=== PATIENT | male | born 1935 | race Caucasian/White ===

== ENCOUNTER → 2016-08-11 | Outpatient (CLI) | payer MEDICARE, OTHER ==
[~2016-08-11] MED LIST: REGADENOSON 0.4 MG/5 ML DISP.SYRIN. IV ONE
== END | disposition home or self-care (01) ==
LOC: PCVCIMAG 08:23
PROVIDERS: ATTEND Internal Medicine
DX: I25.10 Atherosclerotic heart disease of native coronary artery without angina pectoris (principal); I35.0 Nonrheumatic aortic (valve) stenosis; I63.9 Cerebral infarction, unspecified
CPT/HCPCS: 78452; 93017; 93306; A9500; J2785

== ENCOUNTER → 2016-08-15 | Outpatient (CLI) | payer MEDICARE, OTHER | END | disposition home or self-care (01) | LOC: PCVCCLINIC 10:20 | PROVIDERS: ATTEND Internal Medicine | DX: I25.10 Atherosclerotic heart disease of native coronary artery without angina pectoris (principal); I35.0 Nonrheumatic aortic (valve) stenosis; I10 Essential (primary) hypertension; E78.5 Hyperlipidemia, unspecified; I45.2 Bifascicular block; I71.2 Thoracic aortic aneurysm, without rupture | CPT/HCPCS: 80061; 93005; G0463 ==

== ENCOUNTER → 2017-02-16 | Outpatient (CLI) | payer MEDICARE, OTHER | END | disposition home or self-care (01) | LOC: PCVCCLINIC 11:23 | PROVIDERS: ATTEND Internal Medicine | DX: I25.10 Atherosclerotic heart disease of native coronary artery without angina pectoris (principal); I45.10 Unspecified right bundle-branch block; I45.2 Bifascicular block; I65.23 Occlusion and stenosis of bilateral carotid arteries; I10 Essential (primary) hypertension; I71.2 Thoracic aortic aneurysm, without rupture; E78.00 Pure hypercholesterolemia, unspecified; Z79.82 Long term (current) use of aspirin; Z79.899 Other long term (current) drug therapy; Z87.891 Personal history of nicotine dependence | CPT/HCPCS: 80061; G0463 ==

== ENCOUNTER → 2017-08-31 | Outpatient (CLI) | payer MEDICARE, OTHER | END | disposition home or self-care (01) | LOC: PCVCCLINIC 13:00 | DX: I25.10 Atherosclerotic heart disease of native coronary artery without angina pectoris (principal); I45.2 Bifascicular block; I65.23 Occlusion and stenosis of bilateral carotid arteries; I10 Essential (primary) hypertension; E78.5 Hyperlipidemia, unspecified; I71.2 Thoracic aortic aneurysm, without rupture; R94.31 Abnormal electrocardiogram [ECG] [EKG]; Z87.891 Personal history of nicotine dependence; Z79.899 Other long term (current) drug therapy; Z79.82 Long term (current) use of aspirin | CPT/HCPCS: 80061; 93005; G0463 ==

== ENCOUNTER → 2018-03-08 | Outpatient (CLI) | payer MEDICARE, OTHER | END | disposition home or self-care (01) | LOC: PCVCCLINIC 13:00 | PROVIDERS: ATTEND Internal Medicine | DX: I25.10 Atherosclerotic heart disease of native coronary artery without angina pectoris (principal); R94.31 Abnormal electrocardiogram [ECG] [EKG]; I45.2 Bifascicular block; I65.23 Occlusion and stenosis of bilateral carotid arteries; I10 Essential (primary) hypertension; E78.5 Hyperlipidemia, unspecified; I71.2 Thoracic aortic aneurysm, without rupture; Z87.891 Personal history of nicotine dependence; Z72.89 Other problems related to lifestyle; Z79.82 Long term (current) use of aspirin; Z79.899 Other long term (current) drug therapy | CPT/HCPCS: 80061; 93005; G0463 ==

== ENCOUNTER → 2018-08-30 | Outpatient (CLI) | payer MEDICARE, OTHER ==
--- NOTE | 2018-08-30 14:03 | PCVCIMAG ---
APPROVED REPORT Indications Stenosis Risk Factors Hypertension: Hyperlipidemia Doppler Spectral Velocity Analysis PSV / EDVPSV / EDV ECA (R) 48 / 6 cm/sECA (L) 42 / 6 cm/s dICA (R) 38 / 11 cm/sdICA (L) 37 / 14 cm/s Annmarie (R) 38 / 11 cm/smICA (L) 42 / 11 cm/s pICA (R) 48 / 9 cm/spICA (L) 36 / 8 cm/s Bulb (R) 50 / 10 cm/sBulb (L) 41 / 10 cm/s dCCA (R) 46 / 10 cm/sdCCA (L) 56 / 11 cm/s mCCA (R) 58 / 10 cm/smCCA (L) 76 / 14 cm/s Vert (R) 30 / 8 cm/sVert (L) 37 / 11 cm/s ICA/CCA 1.04ICA/CCA 0.75 Basic Measurements Blood Pressure: Pulses: Right Left RightLeft Brachial(Sitting) 140/55erQo709/76mmHgTemporal Real Time B-Mode Imaging Vert. (R)AntegradeVert. (L)Antegrade Findings The right carotid bulb has mild plaque. The right proximal internal carotid artery shows no significant stenosis. The right common carotid artery shows no significant stenosis. The right external carotid artery shows no significant stenosis. The left carotid bulb has mild plaque. The left proximal internal carotid artery shows no significant stenosis. The left common carotid artery shows no significant stenosis. The left external carotid artery shows no significant stenosis. Conclusion 1. Mild bilateral plaquing without significant stenosis. 2. Antegrade vertebral flow
== END | disposition home or self-care (01) ==
LOC: PCVCIMAG 13:08
PROVIDERS: ATTEND Internal Medicine
DX: I65.23 Occlusion and stenosis of bilateral carotid arteries (principal); I25.10 Atherosclerotic heart disease of native coronary artery without angina pectoris; I45.2 Bifascicular block; I10 Essential (primary) hypertension; E78.5 Hyperlipidemia, unspecified; I71.2 Thoracic aortic aneurysm, without rupture; J44.9 Chronic obstructive pulmonary disease, unspecified; Z79.82 Long term (current) use of aspirin; Z87.891 Personal history of nicotine dependence
CPT/HCPCS: 36415; 80061; 93005; 93880; G0463

== ENCOUNTER → 2019-03-07 | Outpatient (CLI) | payer MEDICARE, OTHER ==
--- NOTE | 2019-03-07 16:48 | PCVCIMAG ---
APPROVED REPORT Study performed: 03/07/2019 12:58:50 EXAM: Comprehensive 2D, Doppler, and color-flow Echocardiogram Patient Location: Echo lab Status: routine BSA: 1.99 HR: 62 bpmBP: 158/84 mmHg Rhythm: NSR Other Information Study Quality: Good Indications Aortic Valve Disease CAD COPD 2D Dimensions IVSd: 15.52 (7-11mm)LVOT Diam: 21.17 (18-24mm) LVDd: 36.11 mm PWd: 15.61 (7-11mm)Ascending Ao: 40.99 (22-36mm) LVDs: 24.69 (25-40mm) Left Atrium: 35.68 (27-40mm) Aortic Root: 35.05 mm LV Single Plane 4CH: 62.29 % LV Single Plane 2CH: 62.72 % Biplane EF: 63.6 % Volumes Left Atrial Volume (Systole) Single Plane 4CH: 45.92 mLSingle Plane 2CH: 41.82 mL LA ESV Index: 23.00 mL/m2 Aortic Valve AoV Peak Silas.: 3.34 m/s AO Peak Gr.: 44.65 mmHgLVOT Max P.10 mmHg AO Mean Gr.: 28.39 mmHgLVOT Mean P.62 mmHg AO V2 Mean: 2.57 m/sLVOT Max V: 1.01 m/s AO V2 VTI: 83.16 cmLVOT Mean V: 0.78 m/s TAY (VTI): 1.10 [id number] V1 VTI: 26.03 cm TAY Vmax: 1.07 cm2 AI Vmax: 4.25 m/sSV (LVOT): 91.54 mL AI [place]: 2.90 m/s2 AI PHT: 424.47 ms Mitral Valve E/A Ratio: 0.8 MV Decel. Time: 251.88 ms MV E Max Silas.: 0.59 m/s MV A Silas.: 0.76 m/s TDI E/Lateral E': 11.80E/Medial E': 8.43 Medial E' Silas.: 0.07 m/s Lateral E' Silas.: 0.05 m/s Pulmonary Valve PV Peak Gr.: 2.41 mmHg Pulmonary Vein P Vein S: 0.55 m/sP Vein A: 0.57 m/s P Vein D: 0.48 m/sP Vein A Dur.: 100.3 msec P Vein S/D Ratio: 1.15 Tricuspid Valve TR Peak Silas.: 2.97 m/s TR Peak Gr.: 35.20 mmHg Left Ventricle The left ventricle is normal size. There is normal LV segmental wall motion. Mild concentric left ventricular hypertrophy. Left ventricular systolic function is normal. The left ventricular ejection fraction is within the normal range. LVEF is 60-65%. Mild diastolic dysfunction is present (impaired relaxation pattern). Right Ventricle The right ventricle is normal size. The right ventricular systolic function is normal. Atria The left atrium size is normal. The right atrium size is normal. Aortic Valve Aortic valve leaflets are moderately calcified Trace to mild aortic regurgitation. Calculated aortic valve area is 1.1 cm2 with maximum pressure gradient of 44 mmHg and mean pressure gradient of 28 mmHg. Mitral Valve The mitral valve is normal in structure. There is no mitral valve regurgitation noted. No evidence of mitral valve stenosis. Tricuspid Valve The tricuspid valve is normal in structure. Mild tricuspid regurgitation. Pulmonary artery pressure is 40 mmHg. Pulmonic Valve The pulmonary valve is normal in structure. There is no pulmonic valvular regurgitation. Great Vessels The aortic root is normal in size. The ascending aorta is mildly dilated (4.1cm). IVC is normal in size and collapses >50% with inspiration. Pericardium There is no pericardial effusion. <Conclusion> Left ventricular systolic function is normal. There is normal LV segmental wall motion. LVEF is 60-65%. Mild diastolic dysfunction Aortic valve leaflets are moderately calcified, moderate stenosis, trace insufficiency Calculated aortic valve area is 1.1 cm2 with maximum pressure gradient of 44 mmHg and mean pressure gradient of 28 mmHg. The mitral valve is normal in structure. No mitral valve regurgitation. Mild tricuspid regurgitation. Pulmonary artery pressure is 40 mmHg. There is no pericardial effusion.
== END | disposition home or self-care (01) ==
LOC: PCVCIMAG 12:53
PROVIDERS: ATTEND Internal Medicine
DX: I08.2 Rheumatic disorders of both aortic and tricuspid valves (principal); I25.10 Atherosclerotic heart disease of native coronary artery without angina pectoris; J44.9 Chronic obstructive pulmonary disease, unspecified; I10 Essential (primary) hypertension; I45.2 Bifascicular block; I71.2 Thoracic aortic aneurysm, without rupture; I65.23 Occlusion and stenosis of bilateral carotid arteries; E78.5 Hyperlipidemia, unspecified; E78.00 Pure hypercholesterolemia, unspecified; Z79.82 Long term (current) use of aspirin; Z87.891 Personal history of nicotine dependence
CPT/HCPCS: 36415; 80061; 93005; 93306; G0463